=== PATIENT | female | born 1955 | race Caucasian/White ===

== ENCOUNTER 2021-08-29 08:13 | Day surgery (SDC) | payer BC, SELFPAY ==
[2021-08-22 11:14] VITALS: BMI 27.2
--- NOTE | 2021-08-27 15:08 | P.CONAN_ITS ---
Documented by User: Misty Browning NP 08/28/21 10:53 HPI - Anesthesia Eval Consult details Narrative: 65yo F for Colonoscopy h/o trach d/t guillien barre cirrhosis d/t nonalcoholic steatohepatitis - no decompensation per GI note Last colo 06/2020, repeat d/t poor prep PMFSH Past Medical History Medical History (Updated 08/22/21 @ 11:16 by Lucille Bangura, RN) Asthma Cirrhosis Diabetes Elevated cholesterol GERD (gastroesophageal reflux disease) Guillain-Skipwith syndrome HTN (hypertension) Hypothyroid IBS (irritable bowel syndrome) SANTOS (nonalcoholic steatohepatitis) Sleep apnea Surgical History Surgical History (Updated 08/22/21 @ 11:17 by Lucille Bangura, TYRONE) H/O colonoscopy History of esophagogastroduodenoscopy (EGD) Hx of cholecystectomy Hx of foot surgery Hx of tracheostomy Social History Social History Patient Tobacco Use Status: Tobacco use Unknown Use of substances other than those prescribed or required for medical reasons: No Advance Directives Information Provided: Yes (informational brochure mailed) Advance Directives on File: No Meds Allergies Allergy/AdvReac Type Severity Reaction Status Date / Time furosemide Allergy Mild Hives Verified 08/29/21 09:27 glipizide Allergy Mild Hives Verified 08/29/21 09:27 lisinopril Allergy Mild Hives Verified 08/29/21 09:27 Home Medications Medication Instructions Recorded Confirmed Last Taken Type Lantus Solostar U-100 Insulin 08/22/21 Unknown History albuterol sulfate 90 mcg/actuation 2 puff INHALATION Q4-6H PRN 08/22/21 08/22/21 Unknown History aerosol inhaler (Ventolin HFA) cetirizine 10 mg tablet (Zyrtec) 10 mg PO DAILY 08/22/21 08/22/21 Unknown History gabapentin 400 mg tablet 400 mg PO TID 08/22/21 08/22/21 Unknown History levothyroxine 75 mcg tablet 75 mcg PO DAILY 08/22/21 08/22/21 Unknown History omeprazole 20 mg tablet,delayed 20 mg PO DAILY 08/22/21 08/22/21 Unknown History release sitagliptin 100 mg tablet (Januvia) 100 mg PO DAILY 08/22/21 08/22/21 Unknown History Exam Exam Date and Time: August 27, 2021 1508 Height,Weight and Vital Signs: Height 5 ft 2 in Weight 67.585 kg Assessment and Plan Assessment Anesthesia Assessment: Chart Reviewed Documented by User: Betzy Santacruz MD 08/29/21 09:57 [facility] Past Medical History Medical History (Updated 08/22/21 @ 11:16 by Lucille Bangura RN) Asthma Cirrhosis Diabetes Elevated cholesterol GERD (gastroesophageal reflux disease) Guillain-Skipwith syndrome HTN (hypertension) Hypothyroid IBS (irritable bowel syndrome) SANTOS (nonalcoholic steatohepatitis) Sleep apnea Surgical History Surgical History (Updated 08/22/21 @ 11:17 by Lucille Bangura RN) H/O colonoscopy History of esophagogastroduodenoscopy (EGD) Hx of cholecystectomy Hx of foot surgery Hx of tracheostomy Social History Social History Patient Tobacco Use Status: Tobacco use Unknown Use of substances other than those prescribed or required for medical reasons: No Advance Directives Information Provided: Yes (informational brochure mailed) Advance Directives on File: No Meds Allergies Allergy/AdvReac Type Severity Reaction Status Date / Time furosemide Allergy Mild Hives Verified 08/29/21 09:27 glipizide Allergy Mild Hives Verified 08/29/21 09:27 lisinopril Allergy Mild Hives Verified 08/29/21 09:27 Home Medications Medication Instructions Recorded Confirmed Last Taken Type Lantus Solostar U-100 Insulin 08/22/21 Unknown History albuterol sulfate 90 mcg/actuation 2 puff INHALATION Q4-6H PRN 08/22/21 08/22/21 Unknown History aerosol inhaler (Ventolin HFA) cetirizine 10 mg tablet (Zyrtec) 10 mg PO DAILY 08/22/21 08/22/21 Unknown History gabapentin 400 mg tablet 400 mg PO TID 08/22/21 08/22/21 Unknown History levothyroxine 75 mcg tablet 75 mcg PO DAILY 08/22/21 08/22/21 Unknown History omeprazole 20 mg tablet,delayed 20 mg PO DAILY 08/22/21 08/22/21 Unknown History release sitagliptin 100 mg tablet (Januvia) 100 mg PO DAILY 08/22/21 08/22/21 Unknown History Exam Airway Mallampati Class: I TM Dist: >3cm Neck ROM: Full
[2021-08-29 09:23] LABS: Glucose, Whole Blood 244 mg/dL (60-115)
[2021-08-29 09:24] VITALS: BP 113/66; PULSE 91; RESP 16; TEMP 36.7; O2SAT 98
[2021-08-29] MEDS: Lactated Ringers 1,000 ML 100 ML IVCONT (09:32)
--- NOTE | 2021-08-29 10:29 | MHC.SHP ---
Pre-Procedural Eval Section A Date of Service: 08/29/21 The patient is an INPATIENT: No Changes since office visit: No Cold of Flu in the past 2 weeks, No New Medical Problems, No Changes in Medication and No Patient answered all questions The History & Physical has been completed within 30 days and I have reviewed it.: Yes Section B Chief Complaint: Screening Allergies: Allergies Allergy/AdvReac Type Severity Reaction Status Date / Time furosemide Allergy Mild Hives Verified 08/29/21 09:27 glipizide Allergy Mild Hives Verified 08/29/21 09:27 lisinopril Allergy Mild Hives Verified 08/29/21 09:27 Plan I have reviewed the history and physical and performed a pertinent physical examination on my patient. No changes have occurred unless specified.
--- NOTE | 2021-08-29 11:03 | PM.OP ---
Brief Operative Note Date of Service: 08/29/21 Pre-op diagnosis: screening Post-op diagnosis: same Procedure: colonoscopy Surgeon: Dylon Kasper Anesthesia: MAC Was an Cyber [employer] Systems Specialist used for this Procedure?: No Estimated blood loss (mL): 0 Pathology: none sent Condition: stable Disposition: PACU
[2021-08-29 11:05] VITALS: BP 101/62; PULSE 92; RESP 16; TEMP 36.6; O2SAT 95
--- NOTE | 2021-08-29 11:19 | OP_ITS ---
SURGEON: Dylon Kasper MD INDICATIONS: Colon cancer screening and prior history of incomplete colonoscopies. PREOPERATIVE DIAGNOSIS: POSTOPERATIVE DIAGNOSIS: PROCEDURE PERFORMED: Colonoscopy to the cecum. ESTIMATED BLOOD LOSS: COMPLICATIONS: ANESTHESIA: ASSISTANTS: SPECIMENS: MEDICATIONS: Monitored anesthesia care. DESCRIPTION OF PROCEDURE: History and physical performed. The risks and benefits of the procedure were explained to the patient. Informed consent was obtained. The patient was placed in left lateral decubitus position. A digital rectal exam was performed and was found to be normal. The Olympus pediatric video colonoscope was introduced into the rectum and advanced to the cecum without difficulty. The cecum was identified by transillumination, palpation, and identification of ileocecal valve. Examination was performed and the scope was removed. She tolerated the procedure well and was taken to recovery area in stable condition. FINDINGS: The terminal ileum was not examined. The visualized colonic mucosa was normal. The quality of the prep was good. No polyps were identified. Retroflexed examination was normal. IMPRESSION: Normal screening colonoscopy. RECOMMENDATIONS: 1. Follow up as needed. 2. Repeat colonoscopy is recommended in 10 years for average risk individuals. MD BLANE Newberry/TIFFANIE / [id number]
[2021-08-29 11:25] VITALS: BP 105/62; PULSE 85; RESP 18; TEMP 36.7; O2SAT 98
== END 2021-08-29 11:38 | disposition home or self-care (01) ==
PROVIDERS: PCP Internal Medicine; Visit Provider Internal Medicine Gastroenterology
PROC: 0DJD8ZZ Inspection of Lower Intestinal Tract, Via Natural or Artificial Opening Endoscopic (ICD-10-PCS; CPT 45378; principal; 2021-08-29 10:10)
DX: Z12.11 Encounter for screening for malignant neoplasm of colon (principal); G47.33 Obstructive sleep apnea (adult) (pediatric); K75.81 Nonalcoholic steatohepatitis (NASH); K74.60 Unspecified cirrhosis of liver; K58.9 Irritable bowel syndrome, unspecified; K21.9 Gastro-esophageal reflux disease without esophagitis; J45.909 Unspecified asthma, uncomplicated; I10 Essential (primary) hypertension; E11.40 Type 2 diabetes mellitus with diabetic neuropathy, unspecified; E03.9 Hypothyroidism, unspecified; G61.0 Guillain-Barre syndrome; E78.5 Hyperlipidemia, unspecified; Z90.49 Acquired absence of other specified parts of digestive tract; Z79.4 Long term (current) use of insulin; Z79.899 Other long term (current) drug therapy; Z88.8 Allergy status to other drugs, medicaments and biological substances
CPT/HCPCS: 45378; 82947

== ENCOUNTER 2024-12-01 09:33 | Day surgery (SDC) | payer BC, SELFPAY ==
[2024-11-29 13:52] VITALS: BMI 24.9
--- NOTE | 2024-11-30 09:09 | P.CONAN_ITS ---
Documented by User: Misty Browning NP 11/30/24 09:10 HPI - Anesthesia Eval Consult details Narrative: 69yo F for Upper Endoscopy Hx Guillain-[place] syndrome requiring trach and subsequent removal Anesthesia Pre-Procedure Meds Is the patient on any of the following meds?: GLP1/DPP4 and SGLT2 Inhib PMFSH Past Medical History Medical History (Updated 11/29/24 @ 13:59 by Lucille Bangura RN) Guillain-[place] syndrome Diabetes Hypothyroid IBS (irritable bowel syndrome) Sleep apnea Asthma Elevated cholesterol HTN (hypertension) Cirrhosis SANTOS (nonalcoholic steatohepatitis) GERD (gastroesophageal reflux disease) Surgical History Surgical History (Updated 12/01/24 @ 10:19 by Althea Stevens RN) H/O breast surgery Hx of tracheostomy Hx of cholecystectomy Hx of foot surgery H/O colonoscopy History of esophagogastroduodenoscopy (EGD) Social History Social History Are you a primary skin care specialist to a significant other at home: No Do you presently have visiting nurse or other home services: No Patient Tobacco Use Status: Never used Tobacco Meds Allergies Allergy/AdvReac Type Severity Reaction Status Date / Time furosemide Allergy Mild Hives Verified 12/01/24 10:19 glipizide Allergy Mild Hives Verified 12/01/24 10:19 lisinopril Allergy Mild Hives Verified 12/01/24 10:19 Home Medications ?Medication ?Instructions ?Recorded ?Confirmed ?Last Taken ?Type albuterol sulfate 90 mcg/actuation 2 puff inhalation Q4-6H PRN 08/22/21 12/01/24 Unknown History aerosol inhaler (Ventolin HFA) Wheezing cetirizine 10 mg tablet (Zyrtec) 10 mg PO DAILY 08/22/21 12/01/24 Unknown History gabapentin 400 mg tablet 400 mg PO TID 08/22/21 12/01/24 Unknown History levothyroxine 75 mcg tablet 75 mcg PO DAILY 08/22/21 12/01/24 Unknown History omeprazole 20 mg tablet,delayed 20 mg PO DAILY 08/22/21 12/01/24 Unknown History release dapagliflozin propanediol 5 mg 5 mg PO DAILY 11/29/24 12/01/24 11/23/24 History tablet (Farxiga) dulaglutide 1.5 mg/0.5 mL 1.5 mg subcut QWEEK 11/29/24 12/01/24 11/19/24 History subcutaneous pen injector (Trulicity) insulin glargine 100 unit/mL (3 20 unit subcut BEDTIME 11/29/24 12/01/24 11/30/24 18:00 History mL) subcutaneous pen (Basaglar 10 units KwikPen U-100 Insulin) insulin lispro 100 unit/mL See Rx Instructions .Route .COMPLEX 12/01/24 12/01/24 11/28/24 History subcutaneous pen (Humalog KwikPen (U-100) Insulin) Exam Height,Weight and Vital Signs: Height 5 ft 2 in Weight 61.689 kg Assessment and Plan Assessment Anesthesia Assessment: Chart Reviewed Documented by User: Franc An MD 12/01/24 11:33 HPI - Anesthesia Eval Consult details Narrative: . 69yo F for Upper Endoscopy Hx Guillain-[place] syndrome requiring trach and subsequent removal. 12 yrs ago. [facility] Past Medical History Medical History (Updated 11/29/24 @ 13:59 by Lucille Bangura RN) Guillain-[place] syndrome Diabetes Hypothyroid IBS (irritable bowel syndrome) Sleep apnea Asthma Elevated cholesterol HTN (hypertension) Cirrhosis SANTOS (nonalcoholic steatohepatitis) GERD (gastroesophageal reflux disease) Family History Family history of problems with anesthesia: No Surgical History Surgical History (Updated 12/01/24 @ 10:19 by Althea Stevens RN) H/O breast surgery Hx of tracheostomy Hx of cholecystectomy Hx of foot surgery H/O colonoscopy History of esophagogastroduodenoscopy (EGD) History of Problems with Anesthesia: Yes (PONV) Social History Social History Are you a primary skin care specialist to a significant other at home: No Do you presently have visiting nurse or other home services: No Patient Tobacco Use Status: Never used Tobacco Meds Allergies Allergy/AdvReac Type Severity Reaction Status Date / Time furosemide Allergy Mild Hives Verified 12/01/24 10:19 glipizide Allergy Mild Hives Verified 12/01/24 10:19 lisinopril Allergy Mild Hives Verified 12/01/24 10:19 Home Medications ?Medication ?Instructions ?Recorded ?Confirmed ?Last Taken ?Type albuterol sulfate 90 mcg/actuation 2 puff inhalation Q4-6H PRN 08/22/21 12/01/24 Unknown History aerosol inhaler (Ventolin HFA) Wheezing cetirizine 10 mg tablet (Zyrtec) 10 mg PO DAILY 08/22/21 12/01/24 Unknown History gabapentin 400 mg tablet 400 mg PO TID 08/22/21 12/01/24 Unknown History levothyroxine 75 mcg tablet 75 mcg PO DAILY 08/22/21 12/01/24 Unknown History omeprazole 20 mg tablet,delayed 20 mg PO DAILY 08/22/21 12/01/24 Unknown History release dapagliflozin propanediol 5 mg 5 mg PO DAILY 11/29/24 12/01/24 11/23/24 History tablet (Farxiga) dulaglutide 1.5 mg/0.5 mL 1.5 mg subcut QWEEK 11/29/24 12/01/24 11/19/24 History subcutaneous pen injector (Trulicity) insulin glargine 100 unit/mL (3 20 unit subcut BEDTIME 11/29/24 12/01/24 11/30/24 18:00 History mL) subcutaneous pen (Basaglar 10 units KwikPen U-100 Insulin) insulin lispro 100 unit/mL See Rx Instructions .Route .COMPLEX 12/01/24 12/01/24 11/28/24 History subcutaneous pen (Humalog KwikPen (U-100) Insulin) Exam Airway Mallampati Class: II TM Dist: >3cm Neck ROM: Full Loose/Missing/Broken Teeth: No Heart: ok Lungs: ok Assessment and Plan Assessment Anesthesia Assessment: Anesthesia Plan Discussed Final Anesthetic Review Family History of Problems with Anesthesia: No History of Problems with Anesthesia: Yes (PONV) NPO: Yes ASA Class: III Final Preanesthetic Review: No Changes in Pt Med Stat, Meds/Allgs Chart Reviewed, Consent Obtained/Reviewed and Anes Risks/Benef Reviewed Patient Risk: Intermediate Procedure Risk: Intermediate Anesthetic Plan Anesthetic Plan: Agree w/ Assess. and Plan and TIVA Disposition: Standard PACU
--- OUTSIDE RECORDS SUMMARY | 2024-12-01 10:12 | XMS_ITS | Referral Summary ---
Author Organization [facility] Address [address] [place] [address] Care Team Providers Care Batch Plant Supervisor Name Role Phone Ivory Lino MD Primary Care Provider [phone] Allergies Active Allergy Reactions Criticality Noted Date Comments Flu Vaccine [id number](36mo,Up) Other (see comments) 12/08/2023 PT HAD GUILLAIN-BARRE SYNDROME FROM FLU VACCINE Furosemide Hives 11/01/2023 Glipizide Rash 11/01/2023 House Dust Nasal congestion 12/08/2023 Lisinopril Hives 11/01/2023 Mold Nasal congestion 12/08/2023 Other Dyspnea High 12/08/2023 LYSOL Ragweed Pollen Nasal congestion 12/08/2023 Medications gabapentin (NEURONTIN) 400 mg capsule 400 mg 2 (two) times a day. 1 Active levothyroxine (SYNTHROID, LEVOTHROID) 75 mcg tablet Take 75 mcg by mouth After dinner. TAKE EVERY DAY EXCEPT WEDNESDAY Active meloxicam (MOBIC) 7.5 mg tablet SMARTSI Tablet(s) By Mouth Every 12 Hours PRN 3 Active omeprazole (PriLOSEC) 20 mg capsule Take 20 mg by mouth once a day. 3 Active Trulicity 1.5 mg/0.5 mL injection dose Inject 1.5 mg under the skin once a week. Sundays 3 Active albuterol (PROAIR HFA,VENTOLIN HFA) 90 mcg inhaler 1-2 puffs every 6 hours as needed for wheezing or shortness of breath. Active cetirizine (ZyrTEC) 10 mg tablet Take 1 tablet by mouth daily as needed. Active guaiFENesin ER (Mucinex) 600 mg tablet Take 600 mg by mouth daily as needed. Active MAGNESIUM CARBONATE ORAL Take 54 mg by mouth After dinner. Active b complex vitamins tablet Take 1 tablet by mouth After dinner. 3 Active ibuprofen (MOTRIN) 200 mg tablet Take 400 mg by mouth every 6 hours as needed for pain. Active dapagliflozin propanediol (Farxiga) 5 mg Take 5 mg by mouth once a day. 4 Active insulin glargine (Lantus U-100 Insulin) 100 units/mL solution injection Inject under the skin nightly. Active FreeStyle Justin 2 Sensor kit USE TO CHECK BLOOD SUGAR BEFORE BREAKFAST AND TWO HOURS AFTER MEALS DIRECTED 4 Active Active Problems Problem Noted Date Diagnosed Date Sleep apnea 01/22/2015 Fall 01/22/2015 Supraspinatus tendon tear 01/22/2015 Sleep disturbances 09/28/2013 Benign neoplasm of skin of trunk 03/29/2013 Allergic rhinitis 03/29/2013 Diabetes mellitus, type 2 03/29/2013 Hypertension 03/29/2013 Esophageal reflux 03/29/2013 Hyperlipidemia 03/29/2013 Chronic liver disease 03/29/2013 Carpal tunnel syndrome 03/29/2013 Irritable bowel syndrome 03/29/2013 Hypothyroidism 03/29/2013 Peripheral neuropathy 03/29/2013 Cirrhosis 10/27/2012 Immunizations Name Administration Dates Next Due INFLUENZA, SPLIT VIRUS, TRIVALENT, PF 09/24/2010 Novel [id number], Injectable 11/05/2009 Tetanus Toxoid, Reduced Diph theria Toxoid, and Acellular Pertussis Vaccine, Adsorbed 01/09/2012 Tetanus and Diphtheria Toxoi ds, Adsorbed, Preservative Free, for Adult Use (5 Lf of Tetanus Toxoid and 2 Lf of Diphtheria Toxoid) 11/14/1998 Social History Tobacco Use Types Packs/Day Years Used Date Smoking Tobacco: Never Smokeless Tobacco: Never Tobacco Cessation:Counseling Given: Not Answered Comments:: Alcohol Use Standard Drinks/Week Comments Yes 0 (1 standard drink = 0.6 oz pur e alcohol) once a year Comments No Sex and Gender Information Value Date Recorded Sex Assigned at Female 12/08/2023 1:10 PM EST Legal Sex Female 12:14 AM EDT Gender Identity Not on file Sexual Orientation Not on file Last Filed Vital Signs Vital Sign Reading Time Taken Comments Blood Pressure 100/80 05/29/2024 1:52 PM EDT Pulse 75 03/01/2024 12:49 PM EDT Temperature 36.4 ??C (97.6 ??F) 03/01/2024 11:23 AM E DT Respiratory Rate 16 03/01/2024 12:49 PM EDT Oxygen Saturation 93% 03/01/2024 12:49 PM EDT Inhaled Oxygen Concentration - - Weight 56.2 kg (124 lb) 08/21/2024 1:40 PM EDT Height 157.5 cm (5' 2 ) 08/21/2024 1:40 PM EDT Body Mass Index 22.68 08/21/2024 1:40 PM EDT Plan of Treatment Not on file Medical Devices Implanted Type Area Dive Master Device Identifier Shelf Expiration Date Model / Serial / Lot [employer] Suture Pk Self-Tapping Regenesorb Healicoil Knotless - [id number] Implanted:Qty: 1 on 03/01/2024 by Belkis Espino MD at [facility] Implant Right: Shoulder [employer] 06/04/2026 [id number] / / [id number] Procedures * Due to [place] state law, this organization might not be sharing negative HIV tests. Procedure Name Priority Date/Time Associated Diagnosis Comments HEMOGLOBIN A1C STAT 12/08/2023 1:39 PM EST Pre-op evaluation COMPREHENSIVE METABOLIC PANEL Routine 12/08/2023 1:39 PM EST Nontraumatic complete tear of right rotator cuff DIABETES EYE EXAM Routine 03/20/2015 4:06 PM EDT MAMMOGRAPHY Routine 02/23/2013 10:54 AM EDT MICROALBUMIN, RANDOM URINE, OUTSIDE LAB Routine 05/31/2012 8:18 AM EDT DEXA SCAN Routine 06/10/2010 10:52 AM EDT COLONOSCOPY Routine 05/03/2007 10:55 AM EDT from Last 3 Months or Most Recently Relevant to Health Maintenance Results * Due to [place] state law, this organization might not be sharing negative HIV tests. * Hemoglobin A1c (12/08/2023 1:39 PM EST) Hemoglobin A1c 12.3 % 12/08/2023 2:17 PM EST [facility] Estimated Average Glucose 306 mg/dL 12/08/2023 2:17 PM EST [facility] Blood Structure of peripheral vein / Unknown Venipuncture / Unknown 12/08/2023 1:39 PM EST 12/08/2023 1:48 PM EST Radha Long CHOREOGRAPHY DIRECTOR LAB BLOOD ORDERABLES Final Resu lt Performing Organization Address City/State/[facility] Co de Phone Number [facility] [address] [place] [address] [address] [place] [address], * (ABNORMAL) Comprehensive Metabolic Panel (12/08/2023 1:39 PM EST) NA 138 136 - 145 mmol/L 12/08/2023 2:26 PM EST [facility] K 4.1 3.5 - 5.1 mmol/L 12/08/2023 2:26 PM EST [facility] Cl 102 98 - 109 mmol/L 12/08/2023 2:26 PM EST [facility] CO2 29 23 - 32 mmol/L 12/08/2023 2:26 PM EST [facility] Anion Gap 11 >=0 12/08/2023 2:26 PM EST [facility] Glucose 383(H) 60 - 99 mg/dL 12/08/2023 2:26 PM EST [facility] Creatinine 0.71 0.50 - 1.12 mg/dL 12/08/2023 2:26 PM EST [facility] Calcium 9.2 8.4 - 10.4 mg/dL 12/08/2023 2:26 PM EST [facility] Total Protein 7.4 6.6 - 8.7 g/dL 12/08/2023 2:26 PM EST [facility] Albumin 4.0 3.5 - 5.0 g/dL 12/08/2023 2:26 PM EST [facility] Bilirubin, Total 1.0 0.2 - 1.2 mg/dL 12/08/2023 2:26 PM EST [facility] Alkaline Phosphatase 199(H) 40 - 129 U/L 12/08/2023 2:26 PM EST [facility] AST 30 0 - 33 U/L 12/08/2023 2:26 PM EST [facility] ALT 23 <=33 U/L 12/08/2023 2:26 PM EST [facility] BUN 8 8 - 23 mg/dL 12/08/2023 2:26 PM EST [facility] eGFR >90 >=60 mL/min/1. 73m2 12/08/2023 2:26 PM EST [facility] Comment:The estimated glomer ular filtration rate (eGFR) is calculated using a new formula developed by the NKF-ASN task force to eliminate race-based correction factors. The new formula uses serum/plasma creatinine, age, and gender to determine eGFR. A value below 60mls/min might indicate kidney disease and will be flagged. For additional information, see Marcela et al, Am J Kidney Dis. 2021;79(2):268- 288, A Unifying Approach for GFR estimation: Recommendations of the NKF-ASN Task Force on Reassessing the Inclusion of Race in Diagnosing Kidney Disease . Globulin, Total 3.4 2.1 - 4.2 g/dL 12/08/2023 2:26 PM EST [facility] A/G Ratio 1.2(L) 1.5 - 3.0 12/08/2023 2:26 PM EST [facility] Blood Structure of peripheral vein / Unknown Venipuncture / Unknown 12/08/2023 1:39 PM EST 12/08/2023 1:48 PM EST Belkis Espino MD LAB BLOOD ORDERABLES Final Result [facility] [address] [place] [address], * DIABETES EYE EXAM (03/20/2015 4:06 PM EDT) Pathologist Count includes the [facility] Eye Exam 03/20/15 OTHER Comment:DR WALTON 03/20/2015 4:06 PM EDT us Historical Conversion Provider HEALTH MAINTENANC E Final Result OTHER * MAMMOGRAPHY (02/23/2013 10:54 AM EDT) Pathologist Count includes the [facility] Mammogram Normal findings [facility] Anatomical Region Laterality Modality Other 02/23/2013 10:5 4 AM EDT us Historical Conversion Provider HEALTH MAINTENANC E Final Result * Microalbumin, Random Urine, Outside Lab (05/31/2012 8:18 AM EDT) [facility] Microalbumin, Random Urine less than 1 [facility] 05/31/2012 8:18 AM EDT us Historical Conversion Provider LAB URINE ORDERAB LES Final Result [facility] * DEXA SCAN (06/10/2010 10:52 AM EDT) [facility] Dexa Scan Normal findings [facility] Anatomical Region Laterality Modality Other 06/10/2010 10:5 2 AM EDT us Historical Conversion Provider HEALTH MAINTENANC E Final Result * COLONOSCOPY (05/03/2007 10:55 AM EDT) Pathologist Count includes the [facility] Colonoscopy Negative for polyps. Small hemorrhoids [facility] 05/03/2007 10:5 5 AM EDT us Historical Conversion Provider HEALTH MAINTENANC E Final Result [facility] from Last 3 Months or Most Recently Relevant to Health Maintenance Insurance [employer] MEDICARE Advance Directives * Presumed Full Code (Latest Code Status on File) Date Activated Date Inactivated Comments 03/01/2024 8:09 AM 03/01/2024 4:15 PM Healthcare Agents on File Name Relationship Healthcare Agent Relationshi p Communication Nixon Caban Father Health Care Agent Care Teams Batch Plant Supervisor Relationship Specialty Start Date End Date Ivory Lino MD PCP - General 05/13/17
--- OUTSIDE RECORDS SUMMARY | 2024-12-01 10:12 | XMS_ITS | Patient Health Record ---
Author Organization [facility] Address [address] [place] [phone] Care Team Providers Care Audio Tape Librarian Name Role Phone Zoie NICK, Ivory Primary Care Provider Dylon Lewis Jr Unavailable ALLERGIES Allergen (clinical drug ingredient) Drug/Non Drug Allergy documented on EMR Reaction Allergy Type Onset Date Status Pollen Pollen Unknown Allergy Active Mold Unknown Allergy Active glipizide Glipizide Unknown Drug Allergy Active Dust Mites Unknown Allergy Active lisinopril Lisinopril Unknown Drug Allergy Activ e REASON FOR REFERRAL No Information MEDICATIONS Medication SIG (Take, Route, Frequency, Duration) Notes Start Date End Date Status Trulicity 1.5 MG/0.5ML INJECT 0.5 ML SUBCUTANEOUSLY EVERY WEEK FOR 28 DAYS,ROTATE INJECTION SITES Subcutaneous for 28 Active Basaglar KwikPen 100 UNIT/ML INJECT 20 UNITS SUBCUTANEOUSLY EVERY DAY Subcutaneous for 75 Active Magnesium 400 MG as directed Orally Active Vitamin B Complex - as directed Orally Active ZyrTEC Allergy 10 MG 1 tablet Orally Onc e a day for 30 day(s) prn Active HumaLOG KwikPen 100 UNIT/ML as directed Subcutaneous prn Act francine Omeprazole 20 MG TAKE 1 CAPSULE BY [facility] EVERY DAY NEEDED Oral for 90 days Active Albuterol Sulfate HFA 108 (90 Base) MCG/ACT Inhalation for 25 Activ e Levothyroxine Sodium 75 MCG 1 tablet in the morning on an empty stomach Oral every day except wednesday e Active Gabapentin 400 MG 1 capsule Oral ftern oon and bedtime Active Farxiga 5 MG Oral for 90 Activ e IMMUNIZATIONS Vaccine Route Administration Date Status Comme nts Influenza Unknown 07/31/2021 Refused SOCIAL HISTORY Tobacco Use: Social History Observation Description Date Details (start date - stop date) Never Smoker NA - NA Sex Assigned At : Social History Observation Description Sex Assigned At Unknown Tobacco Use/Smoking Question Answer Notes Patient is a nonsmoker Alcohol Screen Question Answer Notes Did you have a drink containing alcohol in the p ast year? No Points 0 Interpretation Negative PROBLEMS Problem Type ICD Code Onset Dates Problem Status W/U Status Risk SNOMED Code Notes Problem Elevated LFTs (R79.89) Active confirmed 342335382 Problem Colon cancer screening (Z12.11) Active confirmed 444378296 Problem Other cirrhosis of liver (K74.69) Active confirmed 72061192 Problem Gastroesophageal reflux disease without esophagitis (K21.9) Active confirmed 143424026 VITAL SIGNS Blood pressure diastolic 00 mm Hg 11/09/2024 Height 62 in 11/09/2024 Blood pressure systolic 00 mm Hg 11/09/2024 Weight 136 lbs 11/09/2024 BMI 24.87 kg/m2 11/09/2024 Encounters Encounter Location Date Provider Diagnosis [facility] [place] Outpatient [address] [place] [phone] 12/01/2024 Dylon Kasper Jr [facility] [address] [place] [phone] 11/09/2024 Dylon Kasper Jr Other cirrhosis of liver K74.69 and Gastroesophageal reflux disease without esophagitis K21.9 [facility] [address] [place] [phone] 08/04/2024 Dylon Kasper Jr ASSESSMENTS Encounter Date Diagnosis Assessment Notes Treatment Notes Treatment Clinical Notes 11/09/2024 Other cirrhosis of liver (ICD-10 - K74.69) Alanine transaminase (ALT) blood test material was printed 11/09/2024 Gastroesophageal reflux disease without esophagitis (ICD-10 - K21.9) PLAN OF TREATMENT Pending Test Test Name Order Date LIVER PROFILE 07/31/2021 LIVER PROFILE 11/09/2024 GGT 07/31/2021 CBC w/o DIFF 11/09/2024 CBC w/o DIFF 07/31/2021 PROTHROMBIN TIME (PT, INR) 11/09/2024 US ABD 07/31/2021 HCV LIVER FIBROSIS, FIBRO TEST Liver Fibrosis Pnl 11/09/2024 Future Test Test Name Order Date COLONOSCOPY 07/31/2021 UPPER GI ENDOSCOPY 11/09/2024 Next Appt Details Provider Name:Dylon Moises preston Jr, 12/01/2024 11:30:00 AM, [address] , [place], [place], [phone], Insurance Providers Payer Name Payer Address Payer Phone Subscriber Number Group Number Insured Name Patient Relationship to Insured Coverage Start Date Coverage End Date [facility] [address] [place], [place] [phone] [id number] TATO AVELAR Self - patient is the insured MEDICARE OF [place] [address] [place] [address] [phone] [id number] TATO AVELAR Self - patient is the insured MEDICAL (GENERAL) HISTORY Medical History History ICD Code asthma Obstructive sleep apnea type II diabetes with neuropathy Hypothyroidism Allergic rhinitis Nonalcoholic steatohepatitis /cirrhosis, EGD 07/14 mild portal hypertensive gastropathy no varices 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
--- OUTSIDE RECORDS SUMMARY | 2024-12-01 10:12 | XMS_ITS ---
Author Organization [facility] Address [address] [place] [phone] Care Team Providers Care Molten Iron Pourer Name Role Phone Ivory Lino MD Primary Care Provider Sunday Kasper Jr, Dylon Russell [phone] REASON FOR VISIT schedule an appt Encounters Encounter Location Date Provider Diagnosis [facility] [address] [place] [phone] 08/04/2024 Dylon Kasper Jr PLAN OF TREATMENT Next Appt Details Provider Name:Dylon preston Jr, 12/01/2024 11:30:00 AM, [address] [place] [address] , [place], [place], [phone],
--- OUTSIDE RECORDS SUMMARY | 2024-12-01 10:12 | XMS_ITS ---
Author Organization [facility] Address [address] [place] [address] Care Team Providers Care Training Director Name Role Phone Ivory Lino MD Primary Care Provider Dylon Lewis Jr Unavailable ALLERGIES Allergen (clinical drug ingredient) Drug/Non Drug Allergy documented on EMR Reaction Allergy Type Onset Date Status Pollen Pollen Unknown Allergy Active Mold Unknown Allergy Active glipizide Glipizide Unknown Drug Allergy Active Dust Mites Unknown Allergy Active lisinopril Lisinopril Unknown Drug Allergy Activ e REASON FOR VISIT Patient presents for followup MEDICATIONS Medication SIG (Take, Route, Frequency, Duration) Notes Start Date End Date Status Trulicity 1.5 MG/0.5ML INJECT 0.5 ML SUBCUTANEOUSLY EVERY WEEK FOR 28 DAYS,ROTATE INJECTION SITES Subcutaneous for 28 Active Basaglar KwikPen 100 UNIT/ML INJECT 20 UNITS SUBCUTANEOUSLY EVERY DAY Subcutaneous for 75 Active Omeprazole 20 MG TAKE 1 CAPSULE BY [facility] EVERY DAY NEEDED Oral for 90 days Active Albuterol Sulfate HFA 108 (90 Base) MCG/ACT Inhalation for 25 Activ e Levothyroxine Sodium 75 MCG 1 tablet in the morning on an empty stomach Oral every day except wednesday e Active Gabapentin 400 MG 1 capsule Oral ftern oon and bedtime Active Farxiga 5 MG Oral for 90 Activ e Magnesium 400 MG as directed Orally Active Vitamin B Complex - as directed Orally Active ZyrTEC Allergy 10 MG 1 tablet Orally Onc e a day for 30 day(s) prn Active HumaLOG KwikPen 100 UNIT/ML as directed Subcutaneous prn Act francine SOCIAL HISTORY Tobacco Use: Social History Observation [...] W/U Status Risk SNOMED Code Notes Problem Gastroesophageal reflux disease without esophagitis (K21.9) Active confirmed 261168970 VITAL SIGNS BMI 24.87 kg/m2 11/09/2024 Blood pressure systolic 00 mm Hg 11/09/19 25 Blood pressure diastolic 00 mm Hg 025 Height 62 in 11/09/2024 Weight 136 lbs 11/09/2024 Encounters Encounter Location Date Provider Diagnosis [facility] [address] [place] [address] 11/09/2024 Dylon Kasper Jr Other cirrhosis of liver K74.69 and Gastroesophageal reflux disease without esophagitis K21.9 ASSESSMENTS Encounter Date Diagnosis Assessment Notes Treatment Notes Treatment Clinical Notes 11/09/2024 Other cirrhosis of liver (ICD-10 - K74.69) Alanine transaminase (ALT) blood test material was printed 11/09/2024 Gastroesophageal reflux disease without esophagitis (ICD-10 - K21.9) PLAN OF TREATMENT Medication Medication Name Sig Start Date Stop Date Notes Omeprazole 20 MG TAKE 1 CAPSULE BY [facility] EVERY DAY NEEDED Oral for 90 days Treatment Notes Assessment Notes Other cirrhosis of liver Alanine transam inase (ALT) blood test material was printed Pending Test Test Name Order Date LIVER PROFILE 11/09/2024 CBC w/o DIFF 11/09/2024 PROTHROMBIN TIME (PT, INR) 11/09/2024 Liver Fibrosis Pnl 11/09/2024 Future Test Test Name Order Date UPPER GI ENDOSCOPY 11/09/2024 Next Appt Details Follow Up: 1 Year, Reason: Provider Name:Dylon preston Jr, 12/01/2024 11:30:00 AM, [address] [facility] , [place], [place], [phone],
--- OUTSIDE RECORDS SUMMARY | 2024-12-01 10:12 | XMS_ITS | Clinical Summary ---
Author Organization [facility] Address [address] [place] [address] Care Team Providers Care Radiopharmacist Name Role Phone Ivory Lino MD Primary Care Provider [phone] Allergies Active Allergy Reactions Criticality Noted Date Comments Flu Vaccine [id number](36mo,Up) Other (see comments) 12/08/2023 PT HAD GUILLAIN-BARRE [...] INFLUENZA, SPLIT VIRUS, TRIVALENT, PF 09/24/2010 Novel [id number]-[id number], Injectable 11/05/2009 Tetanus Toxoid, Reduced Diph theria Toxoid, and Acellular Pertussis Vaccine, Adsorbed 01/09/2012 Tetanus and Diphtheria Toxoi ds, Adsorbed, Preservative Free, for Adult Use (5 Lf of Tetanus Toxoid and 2 Lf of Diphtheria Toxoid) 11/14/1998 Family History Medical History Relation Name Comments Other Mother Family history of Cirrhosis, nonalcoholic Relation Name Status Comments Mother Social History Tobacco Use Types Packs/Day Years [...] 08/21/2024 1:40 PM EDT Plan of Treatment Health Maintenance Due Date Last Done Comments Cologuard 1955 FOBT / Fit Test 1955 Hepatitis C Screening 1955 Sigmoidoscopy 1955 Zoster Vaccines (1 of 2) 2006 Pneumococcal Vaccine: 65+ Ye ars (2 of 2 - PCV) 08/16/2012 08/16/2011 Urine Microalbumin 05/31/2013 05/31/2012 Mammogram 02/23/2015 02/23/2013 Ophthalmology Exam 03/20/2016 03/20/2015 Hepatitis B Vaccines (1 of 3 - Risk 3-dose series) 2016 RSV Vaccine (60+ years old a nd patients) (1 - Risk 60-74 years 1-dose series) 2016 Colon Cancer Screening 05/03/2017 Colonoscopy 05/03/2017 05/03/2007 Hemoglobin A1C 03/07/2024 12/08/2023, 10/25, 08/10/2012, Additional history exists COVID-19 Vaccine (2023-2 5 season) 2024 07/26/2023, 07/07/2022, 01/27/2022, Additional history exists Influenza Vaccine (#1) 2024 1, 09/24/2010, 11/05/2009 Alcohol/Substance Use Screening 10/25/2024 Depression Screening and Follow-Up 10/25/2024 Health Care Proxy Review 10/25/2024 Social Drivers of Health Marya ual Screening 10/25/2024 Basic Metabolic Panel 12/08/2024 12/08/2023 , 03/31/2012, 06/22/2011 DTaP,Tdap,and Td Vaccines (3 - Td or Tdap) 01/22/2033 01/22/2023, 01/09/2012, 11/14/1998 Osteoporosis Screening Completed 06/10/2010 Medical Devices Implanted Type Area Loss Prevention Consultant Device Identifier Shelf Expiration Date Model / Serial / Lot [place] Suture Pk Self-Tapping Regenesorb Healicoil Knotless - [id number] Implanted:Qty: 1 on 03/01/2024 by Belkis Espino MD at [facility] Implant Right: Shoulder [employer] 06/04/2026 [id number] / / [id number] Procedures * Due to [employer] law, this organization might not be sharing [...] to Health Maintenance Results * Due to [employer] law, this organization might not be sharing negative HIV tests. * Hemoglobin A1c (12/08/2023 1:39 PM EST) Pathologist [facility] Hemoglobin A1c 12.3 % 12/08/2023 2:17 PM EST [facility] Estimated Average Glucose 306 mg/dL 12/08/2023 2:17 PM EST [facility] Blood Structure of peripheral vein / Unknown Venipuncture / Unknown 12/08/2023 1:39 PM EST 12/08/2023 1:48 PM EST Radha Long HOME MAKER LAB BLOOD ORDERABLES Final Resu lt [facility] [address] [place] [address] [address] [place] [address], [place] [phone] * (ABNORMAL) Comprehensive Metabolic Panel (12/08/2023 1:39 PM EST) [facility] NA 138 136 - 145 mmol/L 12/08/2023 2:26 PM EST [facility] K 4.1 3.5 - 5.1 mmol/L 12/08/2023 2:26 PM EST [facility] Cl 102 98 - 109 mmol/L 12/08/2023 2:26 PM EST [facility] CO2 29 23 - 32 mmol/L 12/08/2023 2:26 PM EST [facility] Anion Gap 11 >=0 12/08/2023 2:26 PM EST [facility] Glucose 383(H) 60 - 99 mg/dL 12/08/2023 2:26 PM EST [facility] Creatinine 0.71 0.50 - 1.12 mg/dL 12/08/2023 2:26 PM EST [facility] Calcium 9.2 8.4 - 10.4 mg/dL 12/08/2023 2:26 PM EST [facility] Total Protein 7.4 6.6 - 8.7 g/dL 12/08/2023 2:26 PM EST [facility] Albumin 4.0 3.5 - 5.0 g/dL 12/08/2023 2:26 PM EST [facility] Bilirubin, Total 1.0 0.2 - 1.2 mg/dL 12/08/2023 2:26 PM EST [facility] Alkaline Phosphatase 199(H) 40 - 129 U/L 12/08/2023 2:26 PM EST [facility] AST 30 0 - 33 U/L 12/08/2023 2:26 PM EST [facility] ALT 23 <=33 U/L 12/08/2023 2:26 PM EST [facility] BUN 8 8 - 23 mg/dL 12/08/2023 2:26 PM EST [facility] eGFR >90 >=60 mL/min/1. 73m2 12/08/2023 2:26 PM EST [facility] Comment:The estimated glomer ular filtration rate (eGFR) is calculated using a new formula developed by the NKF-ASN task force to eliminate race-based correction factors. The new formula uses serum/plasma creatinine, age, and gender to determine eGFR. A value below 60mls/min might indicate kidney disease and will be flagged. For additional information, see Medrano et al, Am J Kidney Dis. 2021;79(2):268- 288, A Unifying Approach for GFR estimation: Recommendations of the NKF-ASN Task Force on Reassessing the Inclusion of Race in Diagnosing Kidney Disease . Globulin, Total 3.4 2.1 - 4.2 g/dL 12/08/2023 2:26 PM EST [facility] A/G Ratio 1.2(L) 1.5 - 3.0 12/08/2023 2:26 PM EST [facility] Blood Structure of peripheral vein / Unknown Venipuncture / Unknown 12/08/2023 1:39 PM EST 12/08/2023 1:48 PM EST Belkis Espino MD LAB BLOOD ORDERABLES Final Result [facility] [address] [facility] [address] [place] [address], * DIABETES EYE EXAM (03/20/2015 4:06 PM EDT) Eye Exam 03/20/15 OTHER Comment:DR WALTON 03/20/2015 4:06 PM EDT Historical Conversion Provider HEALTH MAINTENANC E Final Result OTHER * MAMMOGRAPHY (02/23/2013 10:54 AM EDT) Mammogram Normal findings [facility] Anatomical Region Laterality Modality Other 02/23/2013 10:5 4 AM EDT Historical Conversion Provider HEALTH MAINTENANC E Final Result * Microalbumin, Random Urine, Outside Lab (05/31/2012 8:18 AM EDT) Pathologist [facility] Microalbumin, Random Urine less than 1 [facility] 05/31/2012 8:18 AM EDT Historical Conversion Provider LAB URINE ORDERAB LES Final Result [facility] * DEXA SCAN (06/10/2010 10:52 AM EDT) Pathologist Replaced by [facility] Dexa Scan Normal findings [facility] Anatomical Region Laterality Modality Other 06/10/2010 10:5 2 AM EDT Historical Conversion Provider HEALTH MAINTENANC E Final Result * COLONOSCOPY (05/03/2007 10:55 AM EDT) Pathologist Replaced by [facility] Colonoscopy Negative for polyps. Small hemorrhoids [facility] 05/03/2007 10:5 5 AM EDT Historical Conversion Provider HEALTH MAINTENANC E Final Result [facility] from Last 3 Months or Most Recently Relevant to Health Maintenance Insurance [address] [place] [address] FEDERAL MEDICARE Advance Directives * Presumed Full Code (Latest Code Status on File) Date Activated Date Inactivated Comments 03/01/2024 8:09 AM 03/01/2024 4:15 PM Healthcare Agents on File Name Relationship Healthcare Agent Relationshi p Communication Nixon Caban Father Health Care Agent Care Teams Radiopharmacist Relationship Specialty Start Date End Date Ivory Lino MD PCP - General 05/13/17
--- OUTSIDE RECORDS SUMMARY | 2024-12-01 10:12 | XMS_ITS ---
Author Organization [facility] Address [address] [place] [address] Care Team Providers Care Home Maker Name Role Phone Ivory Lino MD Primary Care Provider Sunday Kasper Jr, Dylon Russell REASON FOR VISIT gerd,cirrhosis of liver Encounters Encounter Location Date Provider Diagnosis [facility] Outpatient [address] [place] [phone] 12/01/2024 Dylon Kasper Jr PLAN OF TREATMENT Next Appt Details Provider Name:Dylon preston Jr, 12/01/2024 11:30:00 AM, [address] [place] [address], [phone],
[2024-12-01 10:26] VITALS: BP 122/56; PULSE 81; RESP 16; TEMP 36.7; O2SAT 99; BMI 23.4
[2024-12-01 10:46] LABS: Glucose, Whole Blood 168 mg/dL (60-115)
[2024-12-01] MEDS: Lactated Ringers 1,000 ML 100 ML IVCONT (10:52)
--- NOTE | 2024-12-01 11:21 | MHC.SHP ---
Pre-Procedural Eval Section A - 24 Hr Update-Section A only Date of Service: 12/01/24 The patient is an INPATIENT: No Changes since office visit: No Cold of Flu in the past 2 weeks, No New Medical Problems, No Changes in Medication and No Patient answered all questions The patient has been examined within 24 hours of the surgical procedure. The History & Physical has been completed within 30 days and I have reviewed it.: Yes Section B - Complete if H&P > 30 days Chief Complaint: Gastro-esophageal reflux disease without esophagit Allergies: Allergies Allergy/AdvReac Type Severity Reaction Status Date / Time furosemide Allergy Mild Hives Verified 12/01/24 10:19 glipizide Allergy Mild Hives Verified 12/01/24 10:19 lisinopril Allergy Mild Hives Verified 12/01/24 10:19 Plan I have reviewed the history and physical and performed a pertinent physical examination on my patient. No changes have occurred unless specified. Time Spent With Patient Time: Total time managing care of this patient today ____ minutes.
[2024-12-01 11:50] VITALS: BP 109/48; PULSE 87; RESP 20; TEMP 36.6; O2SAT 95
--- NOTE | 2024-12-01 11:52 | P.BOP_ITS ---
Brief Operative Note Date of Service: 12/01/24 Pre-op diagnosis: cirrhosis Post-op diagnosis: same Surgeon: Dylon Kasper MD Anesthesia: MAC Was an Financial Supervisor used for this Procedure?: No Estimated blood loss (mL): 2 Condition: stable Disposition: PACU
[2024-12-01 12:05] VITALS: BP 118/74; PULSE 81; RESP 16; TEMP 36.4; O2SAT 100
--- NOTE | 2024-12-01 12:36 | OP_ITS ---
DATE OF SERVICE: 12/01/2024 SURGEON: Dylon Kasper MD INDICATIONS: Cirrhosis and gastroesophageal reflux disease. PREOPERATIVE DIAGNOSIS: POSTOPERATIVE DIAGNOSIS: PROCEDURE PERFORMED: Upper endoscopy with biopsy. ESTIMATED BLOOD LOSS: COMPLICATIONS: ANESTHESIA: Monitored anesthesia care. ASSISTANTS: SPECIMENS: DESCRIPTION OF PROCEDURE: A history and physical was performed. The risks and benefits of the procedure were explained to the patient and informed consent was obtained. The patient was placed in the left lateral decubitus position. The Olympus video gastroscope was introduced into the esophagus, stomach, and duodenum. Examination was performed and the scope was removed. She tolerated the procedure well and was returned to recovery area in stable condition. FINDINGS: Esophagus: The esophagus was normal. No varices were identified. Stomach: The stomach showed an 8 mm ulcer on the anterior wall approximately 3 cm before the pylorus. The ulcer had a clean base. Biopsies were obtained from the margin of the ulcer. Duodenum: The bulb and 2nd portion were normal. IMPRESSION: Gastric ulcer. RECOMMENDATIONS: 1. Follow up the biopsy results. 2. Increase omeprazole to 40 mg daily. MD BLANE Newberry/TIFFANIE / [phone]
== END 2024-12-01 12:39 | disposition home or self-care (01) ==
PROVIDERS: PCP Internal Medicine; Visit Provider Internal Medicine Gastroenterology
PROC: 0DJ08ZZ Inspection of Upper Intestinal Tract, Via Natural or Artificial Opening Endoscopic (ICD-10-PCS; CPT 43235; principal; 2024-12-01 11:40)
DX: K21.9 Gastro-esophageal reflux disease without esophagitis (principal); K25.9 Gastric ulcer, unspecified as acute or chronic, without hemorrhage or perforation; K74.69 Other cirrhosis of liver; K75.81 Nonalcoholic steatohepatitis (NASH); K76.6 Portal hypertension; K31.89 Other diseases of stomach and duodenum; K58.9 Irritable bowel syndrome, unspecified; I10 Essential (primary) hypertension; E78.5 Hyperlipidemia, unspecified; E11.40 Type 2 diabetes mellitus with diabetic neuropathy, unspecified; G61.0 Guillain-Barre syndrome; J45.909 Unspecified asthma, uncomplicated; E03.9 Hypothyroidism, unspecified; G47.33 Obstructive sleep apnea (adult) (pediatric); Z79.4 Long term (current) use of insulin; Z79.84 Long term (current) use of oral hypoglycemic drugs; Z79.85 Long-term (current) use of injectable non-insulin antidiabetic drugs; Z79.899 Other long term (current) drug therapy; Z88.8 Allergy status to other drugs, medicaments and biological substances; Z90.49 Acquired absence of other specified parts of digestive tract; Z98.890 Other specified postprocedural states
CPT/HCPCS: 43239; 82947; 88305; 88313; 88342; J2003; J2704; J3010

== ENCOUNTER 2025-03-09 08:06 | Day surgery (SDC) | payer BC, SELFPAY ==
[2025-03-07 08:38] VITALS: BMI 24.9
[2025-03-09 08:15] VITALS: BMI 23.4
[2025-03-09] MEDS: Lactated Ringers 1,000 ML 100 ML IVCONT (08:19)
[2025-03-09 08:27] VITALS: BP 130/68; PULSE 73; RESP 18; TEMP 36.8; O2SAT 97
[2025-03-09 08:31] LABS: Glucose, Whole Blood 151 mg/dL (60-115)
--- NOTE | 2025-03-09 08:52 | HO.ANESPROP2 ---
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 Anesthesia Pre-Procedure Meds Is the patient on any of the following meds?: GLP1/DPP4 and SGLT2 Inhib PMFSH Past Medical History Medical History Guillain-[place] syndrome Diabetes Hypothyroid IBS (irritable bowel syndrome) Sleep apnea Asthma Elevated cholesterol HTN (hypertension) Cirrhosis SANTOS (nonalcoholic steatohepatitis) GERD (gastroesophageal reflux disease) Family History Family history of problems with anesthesia: No Surgical History Surgical History H/O breast surgery Hx of tracheostomy Hx of cholecystectomy Hx of foot surgery H/O colonoscopy History of esophagogastroduodenoscopy (EGD) History of Problems with Anesthesia: Yes (PONV) Social History Social History Are you a primary restorative care technician to a significant other at home: No Do you presently have visiting nurse or other home services: No Patient Tobacco Use Status: Never used Tobacco Have you been hit, kicked, punched, or otherwise hurt by someone within the past year? If so, by whom?: No Are you DNR?: No Advance Directives: No Advance Directives Information Provided: Yes Poor oral hygiene: No Meds Allergies Allergy/AdvReac Type Severity Reaction Status Date / Time furosemide Allergy Mild Hives Verified 03/09/25 08:17 glipizide Allergy Mild Hives Verified 03/09/25 08:17 lisinopril Allergy Mild Hives Verified 03/09/25 08:17 Home Medications ?Medication ?Instructions ?Recorded ?Confirmed ?Last Taken ?Type albuterol sulfate 90 mcg/actuation 2 puff inhalation Q4-6H PRN 08/22/21 03/07/25 Unknown History aerosol inhaler (Ventolin HFA) Wheezing cetirizine 10 mg tablet (Zyrtec) 10 mg PO DAILY 08/22/21 03/07/25 Unknown History gabapentin 400 mg tablet 400 mg PO TID 08/22/21 03/07/25 Unknown History levothyroxine 75 mcg tablet 75 mcg PO DAILY 08/22/21 03/07/25 Unknown History omeprazole 20 mg tablet,delayed 40 mg PO DAILY 08/22/21 03/07/25 Unknown History release dulaglutide 1.5 mg/0.5 mL 1.5 mg subcut QWEEK 11/29/24 03/07/25 02/25/25 History subcutaneous pen injector (Trulicity) insulin glargine 100 unit/mL (3 20 unit subcut BEDTIME 11/29/24 03/07/25 11/30/24 18:00 History mL) subcutaneous pen (Basaglar 10 units KwikPen U-100 Insulin) insulin lispro 100 unit/mL See Rx Instructions .Route .COMPLEX 12/01/24 03/07/25 11/28/24 History subcutaneous pen (Humalog KwikPen (U-100) Insulin) empagliflozin 10 mg tablet 10 mg PO QAM 03/08/25 03/08/25 03/02/25 History (Jardiance) Exam Height,Weight and Vital Signs: Height 5 ft 2 in Weight 61.689 kg Pertinent Lab Results Pertinent Lab Results: CBC and CMP from [facility] 01/2025 - PLTS low @ 135 Assessment and Plan Assessment Anesthesia Assessment: Chart Reviewed Final Anesthetic Review Family History of Problems with Anesthesia: No History of Problems with Anesthesia: Yes (PONV) Documented by User: Susi Rodney DO 03/09/25 08:53 HPI - Anesthesia Eval Anesthesia Pre-Procedure Meds Is the patient on any of the following meds?: GLP1/DPP4 and SGLT2 Inhib PMFSH Past Medical History Medical History Guillain-[place] syndrome Diabetes Hypothyroid IBS (irritable bowel syndrome) Sleep apnea Asthma Elevated cholesterol HTN (hypertension) Cirrhosis SANTOS (nonalcoholic steatohepatitis) GERD (gastroesophageal reflux disease) Family History Family history of problems with anesthesia: No Surgical History Surgical History H/O breast surgery Hx of tracheostomy Hx of cholecystectomy Hx of foot surgery H/O colonoscopy History of esophagogastroduodenoscopy (EGD) History of Problems with Anesthesia: Yes (PONV) Social History Social History Are you a primary restorative care technician to a significant other at home: No Do you presently have visiting nurse or other home services: No Patient Tobacco Use Status: Never used Tobacco Have you been hit, kicked, punched, or otherwise hurt by someone within the past year? If so, by whom?: No Are you DNR?: No Advance Directives: No Advance Directives Information Provided: Yes Poor oral hygiene: No Meds Allergies Allergy/AdvReac Type Severity Reaction Status Date / Time furosemide Allergy Mild Hives Verified 03/09/25 08:17 glipizide Allergy Mild Hives Verified 03/09/25 08:17 lisinopril Allergy Mild Hives Verified 03/09/25 08:17 Home Medications ?Medication ?Instructions ?Recorded ?Confirmed ?Last Taken ?Type albuterol sulfate 90 mcg/actuation 2 puff inhalation Q4-6H PRN 08/22/21 03/07/25 Unknown History aerosol inhaler (Ventolin HFA) Wheezing cetirizine 10 mg tablet (Zyrtec) 10 mg PO DAILY 08/22/21 03/07/25 Unknown History gabapentin 400 mg tablet 400 mg PO TID 08/22/21 03/07/25 Unknown History levothyroxine 75 mcg tablet 75 mcg PO DAILY 08/22/21 03/07/25 Unknown History omeprazole 20 mg tablet,delayed 40 mg PO DAILY 08/22/21 03/07/25 Unknown History release dulaglutide 1.5 mg/0.5 mL 1.5 mg subcut QWEEK 11/29/24 03/07/25 02/25/25 History subcutaneous pen injector (Trulicity) insulin glargine 100 unit/mL (3 20 unit subcut BEDTIME 11/29/24 03/07/25 11/30/24 18:00 History mL) subcutaneous pen (Basaglar 10 units KwikPen U-100 Insulin) insulin lispro 100 unit/mL See Rx Instructions .Route .COMPLEX 12/01/24 03/07/25 11/28/24 History subcutaneous pen (Humalog KwikPen (U-100) Insulin) empagliflozin 10 mg tablet 10 mg PO QAM 03/08/25 03/08/25 03/02/25 History (Jardiance) Exam Exam Date and Time: 03/09/25 0850 Height,Weight and Vital Signs: Height 5 ft 2 in Weight 61.689 kg Vital Signs Temperature 98.2 F 03/09/25 08:27 Pulse Rate 73 03/09/25 08:27 Respiratory Rate 18 03/09/25 08:27 Blood Pressure 130/68 03/09/25 08:27 Pulse Oximetry 97 03/09/25 08:27 Oxygen Delivery Method Room Air 03/09/25 08:27 Temperature 98.2 F 03/09/25 08:27 Pulse Rate 73 03/09/25 08:27 Respiratory Rate 18 03/09/25 08:27 Blood Pressure 130/68 03/09/25 08:27 Pulse Oximetry 97 03/09/25 08:27 Oxygen Delivery Method Room Air 03/09/25 08:27 Airway Mallampati Class: III (small mouth opening) TM Dist: >3cm Neck ROM: Full Loose/Missing/Broken Teeth: Yes (poor dentition - several broken teeth) Heart: S1S2 Lungs: CTAB Assessment and Plan Assessment Anesthesia Assessment: Anesthesia Plan Discussed and Chart Reviewed Final Anesthetic Review Family History of Problems with Anesthesia: No History of Problems with Anesthesia: Yes (PONV) NPO: Yes ASA Class: III Final Preanesthetic Review: No Changes in Pt Med Stat, Meds/Allgs Chart Reviewed, Consent Obtained/Reviewed and Anes Risks/Benef Reviewed Patient Risk: Intermediate Procedure Risk: Low Anesthetic Plan Anesthetic Plan: MAC: and Agree w/ Assess. and Plan Disposition: Standard PACU
--- NOTE | 2025-03-09 08:57 | MHC.SHP ---
Pre-Procedural Eval Section A - 24 Hr Update-Section A only Date of Service: 03/09/25 Section B - Complete if H&P > 30 days Chief Complaint: Gastric ulcer, unspecified as acute or chronic Details of Present Illness: see H&P no changes Relevant Family History (Specify if Yes): No Relevant Social History: None Present Medications: see Short Stay Collaborative assessment Medical History: No relevant PMH History of Previous Operations: No relevant previous surgery Allergies: Allergies Allergy/AdvReac Type Severity Reaction Status Date / Time furosemide Allergy Mild Hives Verified 03/09/25 08:17 glipizide Allergy Mild Hives Verified 03/09/25 08:17 lisinopril Allergy Mild Hives Verified 03/09/25 08:17 Review of Systems Sugical H&P ROS: Negative: Constitution, Cardiovascular, Respiratory, Neurological, Psychiatric, Hem-Onc, Allergic/Immunologic, Gastrointestinal, Genitourinary, Musculoskeletal, Integumentary, Endocrine and Eyes/Ears/Nose/Throat Exam Surgical H&P Exam: Normal: HEENT, Normal: Heart, Normal: Lungs, Normal: Extremities, Normal: Abdomen, Normal: Skin and Normal: Neurological Plan Diagnosis/Plan: Unchanged I have reviewed the history and physical and performed a pertinent physical examination on my patient. No changes have occurred unless specified. Time Spent With Patient Time: Total time managing care of this patient today ____ minutes.
[2025-03-09 09:55] VITALS: BP 105/61; PULSE 86; RESP 16; TEMP 36.3; O2SAT 95
[2025-03-09 10:00] VITALS: BP 106/61; PULSE 75; RESP 16; O2SAT 94
[2025-03-09 10:05] VITALS: BP 108/59; PULSE 73; RESP 16; O2SAT 95
[2025-03-09 10:10] VITALS: BP 105/57; PULSE 78; RESP 16; O2SAT 97
[2025-03-09 10:15] VITALS: BP 131/70; PULSE 70; RESP 16; TEMP 36.3; O2SAT 97
--- NOTE | 2025-03-09 10:28 | OP_ITS ---
DATE OF SERVICE: 03/09/2025 SURGEON: Dylon Kasper MD INDICATIONS: Nonhealing gastric ulcer. PREOPERATIVE DIAGNOSIS: POSTOPERATIVE DIAGNOSIS: PROCEDURE PERFORMED: Upper endoscopy with biopsy. ESTIMATED BLOOD LOSS: COMPLICATIONS: ANESTHESIA: Monitored anesthesia care. ASSISTANTS: SPECIMENS: DESCRIPTION OF PROCEDURE: A history and physical performed. The risks and benefits of the procedure explained to the patient. Informed consent was obtained. The patient was placed in the left lateral decubitus position. The Olympus videogastroscope was introduced into the esophagus, stomach, and duodenum. Examination was performed. The scope was removed. She tolerated the procedure well and was returned to recovery area in stable condition. FINDINGS: Esophagus: The esophagus was normal. Stomach: The stomach showed 2 small 3 mm nonhealing ulcers in the antrum. There was some surrounding erythema. These were biopsied. There was a single erosion measuring approximately 1 mm as well. Duodenum: The bulb and 2nd portion were normal. IMPRESSION: Gastric ulcers. RECOMMENDATIONS: Follow up the biopsy results. MD BLANE Newberry/GALDINOL / [id number]
== END 2025-03-09 10:56 | disposition home or self-care (01) ==
PROVIDERS: PCP Internal Medicine; Visit Provider Internal Medicine Gastroenterology
PROC: 0DJ08ZZ Inspection of Upper Intestinal Tract, Via Natural or Artificial Opening Endoscopic (ICD-10-PCS; CPT 43235; principal; 2025-03-09 09:50)
DX: K25.9 Gastric ulcer, unspecified as acute or chronic, without hemorrhage or perforation (principal); K21.9 Gastro-esophageal reflux disease without esophagitis; K74.69 Other cirrhosis of liver; K75.81 Nonalcoholic steatohepatitis (NASH); K76.6 Portal hypertension; K31.89 Other diseases of stomach and duodenum; K76.0 Fatty (change of) liver, not elsewhere classified; K58.9 Irritable bowel syndrome, unspecified; E11.40 Type 2 diabetes mellitus with diabetic neuropathy, unspecified; J45.909 Unspecified asthma, uncomplicated; G61.0 Guillain-Barre syndrome; I10 Essential (primary) hypertension; E03.9 Hypothyroidism, unspecified; G47.33 Obstructive sleep apnea (adult) (pediatric); Z79.4 Long term (current) use of insulin; Z79.84 Long term (current) use of oral hypoglycemic drugs; Z79.85 Long-term (current) use of injectable non-insulin antidiabetic drugs; Z79.899 Other long term (current) drug therapy; Z88.8 Allergy status to other drugs, medicaments and biological substances; Z90.49 Acquired absence of other specified parts of digestive tract; Z98.890 Other specified postprocedural states
CPT/HCPCS: 43239; 82947; 88305; 88313; 88342; J2003; J2704